=== PATIENT | male | born 1980 | race American Indian/Alaskan Native ===

== ENCOUNTER 2019-02-25 08:54 | Emergency (ER) | payer SELFPAY ==
[2019-02-25] MEDS ORDERED: amLODIPine 5 MG TAB PO ONE (09:29)
[2019-02-25] MEDS ORDERED: LISINOPRIL 20 MG TAB PO ONE (09:29)
--- NOTE | 2019-02-25 09:31 | Emergency Department Report ---
ED General Adult HPI - General Chief complaint: High BP Stated complaint: BP CHECK Time Seen by Provider: 02/25/19 09:28 Source: patient Mode of arrival: Ambulatory Limitations: No Limitations - History of Present Illness Initial comments: Pt w/ hx of HTN and DM, forgot to take meds this AM and then felt lightheaded while going to work so came here States he had a headache this AM that resolved but the lightheadedness persists. Denies CP, SOB, vomiting or any other complaints -: Gradual, hour(s) (3) Location: head Radiation: non-radiation Severity scale (0 -10): 0 Quality: other Consistency: constant Improves with: none Worsens with: none Associated Symptoms: denies other symptoms Treatments Prior to Arrival: none - Related Data Allergies Allergy/AdvReac Type Severity Reaction Status Date / Time No Known Allergies Allergy Unverified 02/25/19 09:03 ED Review of Systems ROS: Stated complaint: BP CHECK Other details as noted in HPI Comment: All other systems reviewed and negative Neurological: as per HPI ED Past Medical Hx - Past Medical History Previous Medical History?: Yes Hx Hypertension: Yes - Surgical History Past Surgical History?: No - Social History Smoking Status: Never Smoker Substance Use Type: Prescribed ED Physical Exam - General Limitations: No Limitations General appearance: alert, in no apparent distress - Head Head exam: Present: atraumatic, normocephalic - Eye Eye exam: Present: normal appearance, PERRL, EOMI Pupils: Present: normal accommodation - ENT ENT exam: Present: mucous membranes moist - Neck Neck exam: Present: normal inspection - Respiratory Respiratory exam: Present: normal lung sounds bilaterally. Absent: respiratory distress - Cardiovascular Cardiovascular Exam: Present: regular rate, normal rhythm, systolic murmur (3/6). Absent: diastolic murmur, rubs, gallop - GI/Abdominal GI/Abdominal exam: Present: soft, normal bowel sounds. Absent: tenderness - Rectal Rectal exam: Present: deferred - Extremities Exam Extremities exam: Present: normal inspection - Back Exam Back exam: Present: normal inspection - Neurological Exam Neurological exam: Present: alert, oriented X3, CN II-XII intact, normal gait. Absent: motor sensory deficit - Psychiatric Psychiatric exam: Present: normal affect, normal mood - Skin Skin exam: Present: warm, dry, intact, normal color. Absent: rash ED Course Vital Signs 02/25/19 02/25/19 08:58 10:05 Temperature 98.5 F Pulse Rate 105 H 105 H Respiratory 18 Rate Blood Pressure 207/96 207/96 O2 Sat by Pulse 100 Oximetry ED Medical Decision Making - Lab Data Result diagrams: 02/25/19 09:34 02/25/19 09:34 - EKG Data -: EKG Interpreted by Me EKG shows normal: sinus rhythm Rate: normal - EKG Data Interpretation: nonspecific ST-T wave ulysses (early repol) - Medical Decision Making lightheadedness x this AM, did not take BP meds today exam normal labs stable, given normal meds here, BP now 141/75 and he feels much better, back to baseline advised med compliance and PCP fu - Differential Diagnosis htn urgency, emergency Critical care attestation.: If time is entered above; I have spent that time in minutes in the direct care of this critically ill patient, excluding procedure time. ED Disposition Clinical Impression: Hypertensive urgency Disposition: DC-01 TO HOME OR SELFCARE Is pt being admited?: No Condition: Good Instructions: Hypertension (ED) Referrals: PRIMARY CAREMD [Primary Care Provider] - 3-5 Days Time of Disposition: 10:53
[2019-02-25 10:30] LABS: Basophils % (Auto) 0.8 % (0.0-1.8); Eosinophils # (Auto) 0.1 K/mm3 (0.0-0.4); Eosinophils % (Auto) 2.4 % (0.0-4.3); Hematocrit 39.2 % (35.5-45.6); Hemoglobin 12.8 gm/dl (11.8-15.2); Lymphocytes # (Auto) 1.7 K/mm3 (1.2-5.4); Lymphocytes % (Auto) 31.7 % (13.4-35.0); Mean Corpuscular HGB Conc 33 % (32-34); Mean Corpuscular Volume 87 fl (84-94); Monocytes # (Auto) 0.7 K/mm3 (0.0-0.8); Monocytes % (Auto) 13.3 % (0.0-7.3); Platelet Count 265 K/mm3 (140-440); Red Cell Distribution Width 13.5 % (13.2-15.2)
[2019-02-25 10:40] LABS: BUN/Creatinine Ratio 16; Blood Urea Nitrogen 11 mg/dL (9-20); Calcium 9.3 mg/dL (8.4-10.2); Hemolysis Index 2
[2019-02-25 10:54] VITALS: BP 141/75
== END 2019-02-25 11:00 | disposition home or self-care (01) ==
LOC: ED 08:54
DX: I16.0 Hypertensive urgency (principal); I10 Essential (primary) hypertension
CPT/HCPCS: 36415; 80048; 84484; 85025; 93005; 93010